=== PATIENT | female | born 1935 | race Caucasian/White ===

== ENCOUNTER 2017-11-21 08:21 | Inpatient (IN) | payer OTHER ==
[~2017-11-21] VITALS: Wt 5.0 kg
[2017-11-21] MEDS ORDERED: METFORMIN HCL500 MG (08:40)
[2017-11-21] MEDS ORDERED: NEURONTIN800 MG (08:49)
[2017-11-21] MEDS ORDERED: AMARYL 2 MG (08:50)
[2017-11-21] MEDS ORDERED: GLIPIZIDE-METF1 EAC2 (08:51)
[2017-11-21] MEDS ORDERED: ENALAPRIL MALEAT5 MG (08:52)
[2017-11-21] MEDS ORDERED: BUSPIRONE HCL15 MG (08:54)
[2017-11-21] MEDS ORDERED: DONEPEZIL HCL10 MG (08:54)
[2017-11-21] MEDS ORDERED: CILOSTAZOL100 MG (08:54)
[2017-11-21] MEDS ORDERED: BUPROPION XL150 MG (08:55)
[2017-11-21] MEDS ORDERED: FOLIC ACID1 MG (08:56)
[2017-11-21] MEDS ORDERED: NAMENDA5 MG (08:57)
[2017-11-21] MEDS ORDERED: OMEPRAZOLE20 M1 (08:58)
[2017-11-21] MEDS ORDERED: RISPERDAL0.25 MG (08:59)
[2017-11-21] MEDS ORDERED: SIMVASTATIN1 GM (09:00)
[2017-11-21] MEDS ORDERED: TRAMADOL HCL50 MG (09:01)
[2017-11-21] MEDS ORDERED: LOVENOX100 MG/1 M (09:02)
[2017-11-24] MEDS ORDERED: GLIMEPIRIDE2 MG PO (10:33)
[2017-11-24] MEDS ORDERED: GLIPIZIDE-METF1 EAC2 PO (10:33)
[2017-11-24] MEDS ORDERED: VASOTEC5 MG PO (10:33)
[2017-11-24] MEDS ORDERED: NAMENDA5 MG PO (10:34)
[2017-11-24] MEDS ORDERED: PRILOSEC OTC20 MG PO (10:34)
[2017-11-24] MEDS ORDERED: ARICEPT10 MG PO (10:34)
[2017-11-24] MEDS ORDERED: WELLBUTRIN XL150 M1 PO (10:34)
[2017-11-24] MEDS ORDERED: BUSPIRONE HCL15 MG PO (10:34)
[2017-11-24] MEDS ORDERED: CILOSTAZOL50 MG PO (10:35)
[2017-11-26] MEDS ORDERED: DUI500 PO (08:01)
[2017-11-26] MEDS ORDERED: PERCOCET 5-3251 EACH PO (08:01)
[2017-11-26] MEDS ORDERED: XARELTO10 MG PO (08:01)
== END 2017-11-26 11:25 | DRG 481 ==
LOC: ER 08:21 → SURH 11-22 08:58 → SEC-K 11-22 08:58 → EDBD 11-22 08:58 → SURH 11-22 10:13
PROVIDERS: Orthopaedic Surgery
PROC: B246ZZZ Ultrasonography of Right and Left Heart (ICD-10-PCS; 2017-11-23)
PROC: 0QS606Z Reposition Right Upper Femur with Intramedullary Internal Fixation Device, Open Approach (ICD-10-PCS; principal; 2017-11-23 14:30)
PROC: 4A12X4Z Monitoring of Cardiac Electrical Activity, External Approach (ICD-10-PCS; 2017-11-25)
DX: S72.141A Displaced intertrochanteric fracture of right femur, initial encounter for closed fracture (principal); M80.00XA Age-related osteoporosis with current pathological fracture, unspecified site, initial encounter for fracture; F02.81 Dementia in other diseases classified elsewhere, unspecified severity, with behavioral disturbance; D62 Acute posthemorrhagic anemia; E11.9 Type 2 diabetes mellitus without complications; E78.00 Pure hypercholesterolemia, unspecified; M51.36 Other intervertebral disc degeneration, lumbar region; G30.8 Other Alzheimer's disease; I10 Essential (primary) hypertension; W18.39XA Other fall on same level, initial encounter; Y93.89 Activity, other specified; Y92.814 Boat as the place of occurrence of the external cause; Y99.8 Other external cause status

== ENCOUNTER 2020-05-10 10:45 | Inpatient (IN) | payer OTHER ==
[~2020-05-10] VITALS: Ht 149.9 cm; Wt 70.8 kg
[~2020-05-10 10:45] MED LIST: AMARYL 2 MG; ARICEPT10 MG PO; BUPROPION XL150 MG; BUSPIRONE HCL15 MG; BUSPIRONE HCL15 MG PO; CILOSTAZOL100 MG; CILOSTAZOL50 MG PO; DONEPEZIL HCL10 MG; DUI500 PO; ENALAPRIL MALEAT5 MG; FOLIC ACID1 MG; GLIMEPIRIDE2 MG PO; GLIPIZIDE-METF1 EAC2; GLIPIZIDE-METF1 EAC2 PO; LOVENOX100 MG/1 M; METFORMIN HCL500 MG; NAMENDA5 MG; NAMENDA5 MG PO; NEURONTIN800 MG; OMEPRAZOLE20 M1; PERCOCET 5-3251 EACH PO; PRILOSEC OTC20 MG PO; RISPERDAL0.25 MG; SIMVASTATIN1 GM; TRAMADOL HCL50 MG; VASOTEC5 MG PO; WELLBUTRIN XL150 M1 PO; XARELTO10 MG PO
[2020-05-10] MEDS ORDERED: TOPROL XL25 M1 PO (15:01)
[2020-05-16] MEDS ORDERED: CILOSTAZOL100 MG (08:43)
[2020-05-17] MEDS ORDERED: ULTRACET PO (08:34)
== END 2020-05-17 12:12 | disposition home or self-care (01) | DRG 331 ==
LOC: SURH 05-16 05:21 → O/R 05-16 05:21 → SURH 05-16 10:30
PROVIDERS: ADMIT Surgery; ATTEND Surgery
PROC: 0DBP0ZZ Excision of Rectum, Open Approach (ICD-10-PCS; 2020-05-16)
PROC: 0DUR0KZ Supplement Anal Sphincter with Nonautologous Tissue Substitute, Open Approach (ICD-10-PCS; 2020-05-16)
PROC: 0DBN0ZZ Excision of Sigmoid Colon, Open Approach (ICD-10-PCS; principal; 2020-05-16 10:30)
DX: K62.3 Rectal prolapse (principal); K62.2 Anal prolapse; K59.4 Anal spasm; K59.02 Outlet dysfunction constipation; K59.09 Other constipation; G30.8 Other Alzheimer's disease; F02.80 Dementia in other diseases classified elsewhere, unspecified severity, without behavioral disturbance, psychotic disturbance, mood disturbance, and anxiety

== ENCOUNTER 2020-05-13 09:55 | Outpatient (CLI) | payer OTHER ==
[~2020-05-13 09:55] MED LIST changes: +TOPROL XL25 M1 PO
== END 2020-05-13 10:02 | disposition home or self-care (01) ==
LOC: LAB 09:55
PROVIDERS: ATTEND Surgery
DX: K59.4 Anal spasm (principal); K59.09 Other constipation; K59.02 Outlet dysfunction constipation; K62.2 Anal prolapse; K62.3 Rectal prolapse; Z20.828 Contact with and (suspected) exposure to other viral communicable diseases; Z03.818 Encounter for observation for suspected exposure to other biological agents ruled out